=== PATIENT | female | born 1965 | race Caucasian/White ===

== ENCOUNTER 2018-04-14 15:33 | Outpatient (CLI) | payer BC, OTHER ==
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
== END 2018-04-14 15:34 | disposition home or self-care (01) ==
LOC: BICRAD 15:33
PROVIDERS: ATTEND Family Medicine
DX: M54.2 Cervicalgia (principal); M54.9 Dorsalgia, unspecified; M47.814 Spondylosis without myelopathy or radiculopathy, thoracic region; M25.551 Pain in right hip; M47.812 Spondylosis without myelopathy or radiculopathy, cervical region; M54.10 Radiculopathy, site unspecified
CPT/HCPCS: 72040; 72072; 72100; 72170; 72220

== ENCOUNTER 2020-03-29 15:46 | Outpatient (CLI) | payer BC ==
--- NOTE | 2020-03-29 16:09 | RAD ---
RADIOGRAPH CHEST 2 VIEWS: DATE: 03/29/2020 HISTORY: 54-year-old female. "COVID 19 pneumonia follow-up" COMPARISON: None FINDINGS: The lungs are clear. The cardiomediastinal silhouette and hilar shadows appear normal. There is no pl eural effusion or pneumothorax. ACDF hardware in the cervical spine. IMPRESSION: Essentially normal.
== END 2020-03-29 15:47 | disposition home or self-care (01) ==
LOC: BICRAD 15:46
PROVIDERS: ATTEND Family Medicine
DX: U07.1 COVID-19 (principal); J12.82 Pneumonia due to coronavirus disease 2019
CPT/HCPCS: 71046